=== PATIENT | female | born 1985 | race African-American/Black ===

== ENCOUNTER 2019-01-19 11:18 | Emergency (ER) | payer MEDICAID ==
[~2019-01-19] VITALS: Ht 154.9 cm; Wt 59.0 kg
[2019-01-19 11:41] VITALS: BP 125/71
[2019-01-19] MEDS ORDERED: IBUPROFEN 600MG TABLET PO ONE (12:30)
== END 2019-01-19 12:47 | disposition home or self-care (01) ==
LOC: ER 11:18
DX: M70.841 Other soft tissue disorders related to use, overuse and pressure, right hand (principal); F12.10 Cannabis abuse, uncomplicated; X50.0XXA Overexertion from strenuous movement or load, initial encounter; Y93.89 Activity, other specified; Y92.89 Other specified places as the place of occurrence of the external cause; Y99.8 Other external cause status
CPT/HCPCS: 29125; 99283